=== PATIENT | male | born 1965 | race Caucasian/White ===

== ENCOUNTER 2016-03-08 09:32 | Inpatient (IN) | payer MEDICAID ==
[~2016-03-08] VITALS: Ht 172.7 cm; Wt 71.0 kg
[~2016-03-08 09:32] MED LIST: KETAMINE INJ 50 MG/ML VIAL IV ONE; LIDOCAINE 2% SYR 5 ML IV ONE; PROPOFOL 50ML PER ML IV ONE
[2016-03-08] MEDS ORDERED: AZITHROMYCIN 500 MG VIAL IV ONE (10:38)
[2016-03-08] MEDS ORDERED: SODIUM CHLORIDE 0.9% 250 ML IV ONE (10:38)
[2016-03-08] MEDS ORDERED: SODIUM CHLORIDE 0.9% 1,000 ML ONE (10:38)
[2016-03-08] MEDS ORDERED: CEFTRIAXONE 1 GM VIAL ONE (10:38)
[2016-03-08] MEDS ORDERED: humuLIN REG INSULIN ONE (11:01)
[2016-03-08] MEDS ORDERED: MAG HYDROX 30 ML UDC PO PRN (11:50)
[2016-03-08] MEDS ORDERED: KETOROLAC 30 MG/ML VIAL ONE (11:50)
[2016-03-08] MEDS ORDERED: SALINE FLUSH 10 ML FLUSH PRN (11:50)
[2016-03-08] MEDS ORDERED: DEXTROSE 50% SYRINGE 50 ML IV PRN (11:50)
[2016-03-08] MEDS ORDERED: [UNRECOGNIZED DRUG - SUPPLY] SCH (11:50)
[2016-03-08] MEDS: SALINE FLUSH 10 ML FLUSH SCH ×2 (11:50→20:52)
[2016-03-08] MEDS ORDERED: GUAIFEN/DM 10 ML UDC PO PRN (11:50)
[2016-03-08] MEDS ORDERED: GLUCOMETER SCH (11:50)
[2016-03-08] MEDS ORDERED: GLUCAGON 1 MG VIAL IM PRN (11:50)
[2016-03-08] MEDS ORDERED: BISACODYL EC 5 MG TAB PO PRN (11:50)
[2016-03-08] MEDS ORDERED: BISACODYL 10 MG SUPP RECTAL PRN (11:50)
[2016-03-08] MEDS ORDERED: ALU/MAG/SIM 30 ML UDC PO PRN (11:50)
[2016-03-08] MEDS ORDERED: LISINOPRIL 5 MG TAB PO SCH (13:35)
[2016-03-08 14:06] VITALS: Ht 172.7 cm; Wt 71.0 kg
[2016-03-08 14:07] VITALS: BP_SYST 105; RESP 20; TEMP 98.5
[2016-03-08] MEDS: GABAPENTIN 600 MG TAB PO SCH ×2 (15:37→20:48)
[2016-03-08] MEDS: CETIRIZINE 10 MG TAB PO SCH (15:37)
[2016-03-08] MEDS: GUAIFENESIN PO SCH ×2 (15:37→20:52)
[2016-03-08] MEDS: PHENYLEPHRINE PO SCH ×2 (15:37→20:52)
[2016-03-08] MEDS: SERTRALINE 25 MG TAB PO SCH (15:38)
[2016-03-08] MEDS: PANTOPRAZOLE 40 MG TAB PO SCH (15:38)
[2016-03-08] MEDS: CYCLOBENZAPRINE 10 MG TAB PO PRN (15:39)
[2016-03-08] MEDS: LISINOPRIL 10 MG TAB PO SCH (15:44)
[2016-03-08] MEDS: LEVOFLOXACIN 750 MG/150 ML 150 ML IV SCH (15:53)
[2016-03-08] MEDS: ENOXAPARIN 30 MG/0.3 ML SYR SUBQ SCH (15:55)
[2016-03-08] MEDS: DUONEB INH SCH ×4 (16:29→23:09)
[2016-03-08 16:47] VITALS: RESP 18
[2016-03-08] MEDS: LEVEMIR INSULIN SUBQ SCH (17:14)
[2016-03-08] MEDS ORDERED: MORPHINE 2 MG/ML SYR IV PRN (17:40)
[2016-03-08 19:42] VITALS: BP_SYST 115; RESP 16; TEMP 100.1
[2016-03-08] MEDS ORDERED: ACETAMINOPHEN 325 MG TAB PO PRN (20:35)
[2016-03-08] MEDS: ROSUVASTATIN 5 MG TAB PO SCH (20:48)
[2016-03-08] MEDS: SODIUM CHLORIDE 0.9% 1,000 ML IV SCH (20:52)
[2016-03-08] MEDS: BENZONATATE 100 MG CAP PO PRN (20:52)
[2016-03-08 23:12] VITALS: BP_SYST 111; RESP 20; TEMP 98.7
[2016-03-08] MEDS: MORPHINE 2 MG/ML SYR IV PRN (23:33)
[2016-03-09] MEDS: DUONEB INH SCH ×6 (02:53→22:37)
[2016-03-09 03:06] VITALS: BP_SYST 114; RESP 18; TEMP 97.6
[2016-03-09] MEDS: SODIUM CHLORIDE 0.9% FLUSH BAG 500 ML IV SCH ×2 (05:54→19:18)
[2016-03-09] MEDS: PANTOPRAZOLE 40 MG TAB PO SCH (06:45)
[2016-03-09] MEDS: MORPHINE 2 MG/ML SYR IV PRN ×2 (06:45→20:13)
[2016-03-09 07:12] VITALS: BP_SYST 108; RESP 16; TEMP 98.4
[2016-03-09] MEDS: GUAIFENESIN PO SCH ×2 (08:59→20:12)
[2016-03-09] MEDS: LEVOFLOXACIN 750 MG/150 ML 150 ML IV SCH (08:59)
[2016-03-09] MEDS: SERTRALINE 25 MG TAB PO SCH (08:59)
[2016-03-09] MEDS: PHENYLEPHRINE PO SCH ×2 (08:59→20:12)
[2016-03-09] MEDS: GABAPENTIN 600 MG TAB PO SCH ×2 (08:59→20:12)
[2016-03-09] MEDS: LISINOPRIL 10 MG TAB PO SCH (08:59)
[2016-03-09] MEDS: CETIRIZINE 10 MG TAB PO SCH (08:59)
[2016-03-09] MEDS: LEVEMIR INSULIN SUBQ SCH (09:00)
[2016-03-09] MEDS: ENOXAPARIN 30 MG/0.3 ML SYR SUBQ SCH (09:01)
[2016-03-09] MEDS: SALINE FLUSH 10 ML FLUSH SCH ×2 (09:01→20:12)
[2016-03-09] MEDS: SODIUM CHLORIDE 0.9% 1,000 ML IV SCH ×2 (09:05→20:14)
[2016-03-09 10:36] VITALS: BP_SYST 106; RESP 16; TEMP 98.2
[2016-03-09 14:52] VITALS: BP_SYST 114; RESP 16; TEMP 98.4
[2016-03-09 19:42] VITALS: BP_SYST 115; RESP 16; TEMP 98.1
[2016-03-09] MEDS: ROSUVASTATIN 5 MG TAB PO SCH (20:12)
[2016-03-09] MEDS: BENZONATATE 100 MG CAP PO PRN (20:12)
[2016-03-09] MEDS: CYCLOBENZAPRINE 10 MG TAB PO PRN (20:13)
[2016-03-09 23:18] VITALS: BP_SYST 119; RESP 16; TEMP 99.6
[2016-03-10] MEDS: DUONEB INH SCH ×6 (02:29→23:00)
[2016-03-10 03:53] VITALS: BP_SYST 128; RESP 16; TEMP 98.2
[2016-03-10] MEDS: PANTOPRAZOLE 40 MG TAB PO SCH (06:00)
[2016-03-10] MEDS: MORPHINE 2 MG/ML SYR IV PRN ×3 (06:00→20:22)
[2016-03-10] MEDS: SODIUM CHLORIDE 0.9% 1,000 ML IV SCH ×2 (06:00→16:50)
[2016-03-10 07:48] VITALS: BP_SYST 144; RESP 16; TEMP 98.2
[2016-03-10] MEDS: SALINE FLUSH 10 ML FLUSH SCH ×2 (08:00→20:20)
[2016-03-10] MEDS: LEVOFLOXACIN 750 MG/150 ML 150 ML IV SCH (09:16)
[2016-03-10] MEDS: ENOXAPARIN 30 MG/0.3 ML SYR SUBQ SCH (09:16)
[2016-03-10] MEDS: LEVEMIR INSULIN SUBQ SCH (09:17)
[2016-03-10] MEDS: SERTRALINE 25 MG TAB PO SCH (09:18)
[2016-03-10] MEDS: GABAPENTIN 600 MG TAB PO SCH ×2 (09:18→20:20)
[2016-03-10] MEDS: CETIRIZINE 10 MG TAB PO SCH (09:18)
[2016-03-10] MEDS: LISINOPRIL 10 MG TAB PO SCH (09:18)
[2016-03-10] MEDS: GUAIFENESIN PO SCH ×2 (09:18→20:20)
[2016-03-10] MEDS: PHENYLEPHRINE PO SCH ×2 (09:18→20:20)
[2016-03-10 15:17] VITALS: BP_SYST 128; RESP 16; TEMP 97.4
[2016-03-10] MEDS: NICOTINE 21 MG/24 HR TRANSDERM SCH (17:25)
[2016-03-10 19:56] VITALS: BP_SYST 128; RESP 16; TEMP 99.3
[2016-03-10] MEDS: BENZONATATE 100 MG CAP PO PRN (20:20)
[2016-03-10] MEDS: CYCLOBENZAPRINE 10 MG TAB PO PRN (20:20)
[2016-03-10] MEDS: ROSUVASTATIN 5 MG TAB PO SCH (20:20)
[2016-03-10] MEDS: SODIUM CHLORIDE 0.9% FLUSH BAG 500 ML IV SCH (20:21)
[2016-03-10 23:39] VITALS: BP_SYST 107; BP_SYST 148; RESP 16; TEMP 97.3; TEMP 97.8
[2016-03-11] VITALS (18 sets, daily range): BP systolic 80–164; RESP 12–18; TEMP 97.4–99.4
[2016-03-11] MEDS: DUONEB INH SCH ×6 (02:11→23:00)
[2016-03-11] MEDS: SODIUM CHLORIDE 0.9% 1,000 ML IV SCH ×2 (05:27→18:40)
[2016-03-11] MEDS: PANTOPRAZOLE 40 MG TAB PO SCH (06:13)
[2016-03-11] MEDS: SALINE FLUSH 10 ML FLUSH SCH ×2 (08:00→20:00)
[2016-03-11] MEDS: ENOXAPARIN 30 MG/0.3 ML SYR SUBQ SCH (09:00)
[2016-03-11] MEDS: LISINOPRIL 10 MG TAB PO SCH (09:17)
[2016-03-11] MEDS: GUAIFENESIN PO SCH ×2 (09:17→20:00)
[2016-03-11] MEDS: SERTRALINE 25 MG TAB PO SCH (09:17)
[2016-03-11] MEDS: PHENYLEPHRINE PO SCH ×2 (09:17→20:00)
[2016-03-11] MEDS: NICOTINE 21 MG/24 HR TRANSDERM SCH (09:17)
[2016-03-11] MEDS: GABAPENTIN 600 MG TAB PO SCH ×2 (09:17→20:00)
[2016-03-11] MEDS: CYCLOBENZAPRINE 10 MG TAB PO PRN (09:18)
[2016-03-11] MEDS: CETIRIZINE 10 MG TAB PO SCH (09:18)
[2016-03-11] MEDS: BENZONATATE 100 MG CAP PO PRN (09:20)
[2016-03-11] MEDS ORDERED: MISSING DOSE XX ONE (09:40)
[2016-03-11] MEDS: LEVEMIR INSULIN SUBQ SCH (10:23)
[2016-03-11] MEDS: LEVOFLOXACIN 750 MG/150 ML 150 ML IV SCH (10:29)
[2016-03-11] MEDS: MORPHINE 2 MG/ML SYR IV PRN (17:18)
[2016-03-11] MEDS: ROSUVASTATIN 5 MG TAB PO SCH (20:00)
[2016-03-12] MEDS: DUONEB INH SCH ×6 (03:00→23:00)
[2016-03-12 05:02] VITALS: BP_SYST 154; RESP 20; TEMP 98.5
[2016-03-12] MEDS: PANTOPRAZOLE 40 MG TAB PO SCH (05:39)
[2016-03-12] MEDS: SODIUM CHLORIDE 0.9% FLUSH BAG 500 ML IV SCH (05:39)
[2016-03-12 07:20] VITALS: BP_SYST 143; RESP 18; TEMP 98.3
[2016-03-12] MEDS: GUAIFENESIN PO SCH ×2 (08:58→20:10)
[2016-03-12] MEDS: PHENYLEPHRINE PO SCH ×2 (08:58→20:10)
[2016-03-12] MEDS: SERTRALINE 25 MG TAB PO SCH (08:58)
[2016-03-12] MEDS: GABAPENTIN 600 MG TAB PO SCH ×2 (08:58→20:10)
[2016-03-12] MEDS: CYCLOBENZAPRINE 10 MG TAB PO PRN ×2 (08:59→21:31)
[2016-03-12] MEDS: LEVEMIR INSULIN SUBQ SCH ×2 (08:59→19:41)
[2016-03-12] MEDS: CETIRIZINE 10 MG TAB PO SCH (08:59)
[2016-03-12] MEDS: SALINE FLUSH 10 ML FLUSH SCH ×2 (09:00→20:00)
[2016-03-12] MEDS ORDERED: LEVEMIR INSULIN SUBQ SCH ×2 (09:00)
[2016-03-12] MEDS: LEVOFLOXACIN 750 MG/150 ML 150 ML IV SCH (09:00)
[2016-03-12] MEDS: ENOXAPARIN 30 MG/0.3 ML SYR SUBQ SCH (09:01)
[2016-03-12] MEDS: NICOTINE 21 MG/24 HR TRANSDERM SCH (09:01)
[2016-03-12] MEDS: LISINOPRIL 20 MG TAB PO SCH (09:05)
[2016-03-12 10:20] VITALS: BP_SYST 151; RESP 16; TEMP 98.2
[2016-03-12] MEDS: MORPHINE 2 MG/ML SYR IV PRN ×2 (15:46→19:40)
[2016-03-12] MEDS: HCTZ 12.5 MG CAP PO SCH (18:53)
[2016-03-12 19:31] VITALS: BP_SYST 130; RESP 18; TEMP 98.2
[2016-03-12] MEDS: ROSUVASTATIN 5 MG TAB PO SCH (20:10)
[2016-03-13] VITALS (7 sets, daily range): BP systolic 101–147; RESP 16–20; TEMP 97.1–98.8
[2016-03-13] MEDS: DUONEB INH SCH ×6 (03:00→22:32)
[2016-03-13] MEDS: SODIUM CHLORIDE 0.9% FLUSH BAG 500 ML IV SCH (05:16)
[2016-03-13] MEDS: PANTOPRAZOLE 40 MG TAB PO SCH (06:43)
[2016-03-13] MEDS: LEVEMIR INSULIN SUBQ SCH ×2 (08:43→21:35)
[2016-03-13] MEDS: PHENYLEPHRINE PO SCH ×2 (08:44→21:22)
[2016-03-13] MEDS: SERTRALINE 25 MG TAB PO SCH (08:44)
[2016-03-13] MEDS: CETIRIZINE 10 MG TAB PO SCH (08:44)
[2016-03-13] MEDS: GUAIFENESIN PO SCH ×2 (08:44→21:22)
[2016-03-13] MEDS: GABAPENTIN 600 MG TAB PO SCH ×2 (08:44→21:22)
[2016-03-13] MEDS: LISINOPRIL 20 MG TAB PO SCH (08:45)
[2016-03-13] MEDS: ENOXAPARIN 30 MG/0.3 ML SYR SUBQ SCH (08:45)
[2016-03-13] MEDS: LEVOFLOXACIN 750 MG TAB PO SCH (08:45)
[2016-03-13] MEDS: HCTZ 12.5 MG CAP PO SCH (08:45)
[2016-03-13] MEDS: NICOTINE 21 MG/24 HR TRANSDERM SCH (08:45)
[2016-03-13] MEDS: MORPHINE 2 MG/ML SYR IV PRN ×3 (08:53→21:36)
[2016-03-13] MEDS: SALINE FLUSH 10 ML FLUSH SCH ×2 (08:53→21:22)
[2016-03-13] MEDS ORDERED: TUBERCULIN PPD 5 UNIT SYR ID.VACC ONE (19:10)
[2016-03-13] MEDS: ROSUVASTATIN 5 MG TAB PO SCH (21:22)
[2016-03-14] MEDS: DUONEB INH SCH ×3 (02:41→10:28)
[2016-03-14 03:59] VITALS: BP_SYST 115; RESP 18; TEMP 98.8
[2016-03-14] MEDS: SODIUM CHLORIDE 0.9% FLUSH BAG 500 ML IV SCH (05:39)
[2016-03-14] MEDS: MORPHINE 2 MG/ML SYR IV PRN ×3 (07:17→15:20)
[2016-03-14] MEDS: PANTOPRAZOLE 40 MG TAB PO SCH (07:18)
[2016-03-14 07:26] VITALS: BP_SYST 106; RESP 18; TEMP 98.2
[2016-03-14] MEDS: HCTZ 12.5 MG CAP PO SCH (08:46)
[2016-03-14] MEDS: GABAPENTIN 600 MG TAB PO SCH ×2 (08:46→19:50)
[2016-03-14] MEDS: LISINOPRIL 20 MG TAB PO SCH (08:46)
[2016-03-14] MEDS: GUAIFENESIN PO SCH ×2 (08:46→19:50)
[2016-03-14] MEDS: ENOXAPARIN 30 MG/0.3 ML SYR SUBQ SCH (08:46)
[2016-03-14] MEDS: LEVOFLOXACIN 750 MG TAB PO SCH (08:46)
[2016-03-14] MEDS: PHENYLEPHRINE PO SCH ×2 (08:46→19:50)
[2016-03-14] MEDS: CETIRIZINE 10 MG TAB PO SCH (08:46)
[2016-03-14] MEDS: SERTRALINE 25 MG TAB PO SCH ×2 (08:46→11:24)
[2016-03-14] MEDS: CYCLOBENZAPRINE 10 MG TAB PO PRN ×2 (08:46→16:40)
[2016-03-14] MEDS: NICOTINE 21 MG/24 HR TRANSDERM SCH (08:47)
[2016-03-14] MEDS: LEVEMIR INSULIN SUBQ SCH ×2 (08:48→20:18)
[2016-03-14] MEDS ORDERED: MISSING DOSE XX ONE (11:00)
[2016-03-14] MEDS: SALINE FLUSH 10 ML FLUSH SCH ×2 (11:01→19:49)
[2016-03-14 11:06] VITALS: BP_SYST 121; RESP 18; TEMP 97.6
[2016-03-14] MEDS ORDERED: DUONEB INH SCH (12:00)
[2016-03-14] MEDS ORDERED: DUONEB INH PRN (12:10)
[2016-03-14 14:59] VITALS: BP_SYST 118; RESP 18; TEMP 98.2
[2016-03-14] MEDS: BENZONATATE 100 MG CAP PO PRN (16:40)
[2016-03-14] MEDS ORDERED: DILAUDID 1 MG/ML AMP ONE (17:21)
[2016-03-14] MEDS: ROSUVASTATIN 5 MG TAB PO SCH (19:50)
[2016-03-14 20:00] VITALS: BP_SYST 122; RESP 16; TEMP 98.1
[2016-03-14] MEDS: DILAUDID 1 MG/ML AMP IV PRN ×2 (20:21→23:10)
[2016-03-14 23:16] VITALS: BP_SYST 115; RESP 16; TEMP 98.4
[2016-03-15] MEDS: DILAUDID 1 MG/ML AMP IV PRN ×7 (02:48→13:48)
[2016-03-15 02:54] VITALS: BP_SYST 136; RESP 16; TEMP 98.1
[2016-03-15] MEDS: SODIUM CHLORIDE 0.9% FLUSH BAG 500 ML IV SCH (04:55)
[2016-03-15] MEDS: PANTOPRAZOLE 40 MG TAB PO SCH (06:12)
[2016-03-15 07:27] VITALS: BP_SYST 116; RESP 16; TEMP 97.4
[2016-03-15] MEDS: NICOTINE 21 MG/24 HR TRANSDERM SCH (08:31)
[2016-03-15] MEDS: ENOXAPARIN 30 MG/0.3 ML SYR SUBQ SCH (08:32)
[2016-03-15] MEDS: LEVEMIR INSULIN SUBQ SCH (08:33)
[2016-03-15] MEDS: CETIRIZINE 10 MG TAB PO SCH (08:33)
[2016-03-15] MEDS: HCTZ 12.5 MG CAP PO SCH (08:34)
[2016-03-15] MEDS: GABAPENTIN 600 MG TAB PO SCH (08:34)
[2016-03-15] MEDS: LISINOPRIL 20 MG TAB PO SCH (08:34)
[2016-03-15] MEDS: SERTRALINE 25 MG TAB PO SCH (08:34)
[2016-03-15] MEDS: PHENYLEPHRINE PO SCH (08:34)
[2016-03-15] MEDS: GUAIFENESIN PO SCH (08:34)
[2016-03-15] MEDS: SALINE FLUSH 10 ML FLUSH SCH (08:40)
[2016-03-15 11:40] VITALS: BP_SYST 131; RESP 18; TEMP 97.3
[2016-03-15 13:19] VITALS: BP_SYST 131; RESP 18; TEMP 97.3
[2016-03-15 13:33] VITALS: RESP 16
[2016-03-16] MEDS ORDERED: SKIN TEST: READ AND RECORD XX ONE (11:00)
== END 2016-03-15 14:09 | disposition home or self-care (01) | DRG 166 ==
LOC: CANRESERV → ENRESERVTM → ENRESERVDT → ER 09:32 → ENPENDDIS 11:48 → EMR 11:48 → 5THE 13:53
PROVIDERS: ADMIT Internal Medicine; ATTEND Internal Medicine
PROC: 0BBJ8ZX Excision of Left Lower Lung Lobe, Via Natural or Artificial Opening Endoscopic, Diagnostic (ICD-10-PCS; 2016-03-11)
PROC: 0B968ZX Drainage of Right Lower Lobe Bronchus, Via Natural or Artificial Opening Endoscopic, Diagnostic (ICD-10-PCS; principal; 2016-03-11 11:00)
DX: J96.01 Acute respiratory failure with hypoxia (principal); J18.9 Pneumonia, unspecified organism; B20 Human immunodeficiency virus [HIV] disease; E87.4 Mixed disorder of acid-base balance; J95.811 Postprocedural pneumothorax; J44.0 Chronic obstructive pulmonary disease with (acute) lower respiratory infection; E87.1 Hypo-osmolality and hyponatremia; J44.1 Chronic obstructive pulmonary disease with (acute) exacerbation; E11.40 Type 2 diabetes mellitus with diabetic neuropathy, unspecified; F17.210 Nicotine dependence, cigarettes, uncomplicated; Z87.01 Personal history of pneumonia (recurrent); M06.9 Rheumatoid arthritis, unspecified; K21.9 Gastro-esophageal reflux disease without esophagitis; E11.65 Type 2 diabetes mellitus with hyperglycemia; Z79.4 Long term (current) use of insulin; F41.9 Anxiety disorder, unspecified; F32.9 Major depressive disorder, single episode, unspecified; I10 Essential (primary) hypertension; F15.10 Other stimulant abuse, uncomplicated
CPT/HCPCS: 36415; 36600; 71010; 71020; 71250; 74150; 80048; 80053; 80061; 80307; 81001; 82553; 82803; 82947; 83036; 83605; 83735; 83880; 84439; 84443; 84484; 85025; 85652; 86141; 86580; 86689; 86701; 86704; 86705; 86706; 86708; 86709; 86777; 86778; 86780; 87040; 87071; 87102; 87116; 87205; 87206; 87278; 87299; 87496; 88104; 88108; 88305; 89051; 93005; 94640; 94664; 94799; 96361; 96365; 96366; 96367; 96372; 96375; 99223; 99231; 99232; 99233; 99239

== ENCOUNTER 2016-03-28 09:17 | Emergency (ER) | payer MEDICAID ==
[2016-03-28] MEDS ORDERED: DUONEB INH ONE ×2 (11:24)
[2016-03-28] MEDS ORDERED: SODIUM CHLORIDE 0.9% 1,000 ML ONE (13:13)
[2016-03-28] MEDS ORDERED: humuLIN REG INSULIN ONE (13:13)
== END 2016-03-28 15:35 | disposition home or self-care (01) ==
LOC: ER 09:17
DX: R06.00 Dyspnea, unspecified (principal)
CPT/HCPCS: 36415; 71020; 80048; 82553; 82947; 83605; 83735; 83880; 84484; 85025; 87040; 87804; 87880; 93005; 94640; 96361; 96374